=== PATIENT | male | born 1945 | race Caucasian/White ===

== ENCOUNTER 2022-12-08 11:13 | Emergency (ER) | payer OTHER, MEDICARE, SELFPAY ==
[2022-12-08 11:14] VITALS: BP 116/55; PULSE 56; RESP 14; TEMP 36.2; O2SAT 98; BMI 22.2
--- NOTE | 2022-12-08 12:04 | EDS_ITS ---
HPI History of Present Illness HPI Narrative: Patient presents with right hip and pelvic pain that began after a fall 2 days ago. Patient states he was working on a car left and fell approximately 3 feet and landed on his right hip and pelvis area. Patient states his pain is mainly over his right hip and pelvis. Patient states his pain is worse with any weightbearing. Patient denies any paresthesias or weakness. Patient denies any head injury or loss of consciousness. Patient denies any other injuries. Chief Complaint: Fall Informant: patient Occured/Mechanism Mechanism/Context: Yes fall Onset/Context/Timing Onset: Days (2 days ago) Context: Sudden Onset Timing: Continuous Quality of Pain: Aching Location: Right hip and pelvis Worsened by: Weightbearing Relieved by: Rest Associated Symptoms Associated Symptoms: Negative for Parasthesia, Weakness or Loss of Funtion PFSH PFSH Medical History no medical history no medical history Home Medications hydrocodone-acetaminophen 5-325mg 5mg-325mg 1 tab PO Q6H PRN PRN Pain 3 days #10 TABLETS 12/08/22 [Rx Last Taken Unknown] Allergy/AdvReac Type Severity Reaction Status Date / Time No Known Allergies Allergy Verified 12/08/22 11:17 Surgical History no surgical history no surgical history Social History Smoking Status: Former smoker ROS ROS ED Constitutional Constitutional ED: Denies chills or fever(s) Eyes Eyes: Denies blurry vision or change in vision ENT ENT ED: Reports rhinorrhea; Denies sore throat Cardiovascular Cardiovascular: Denies chest pain or palpitations Respiratory/Chest Respiratory/Chest: Reports cough; Denies dyspnea Gastrointestinal Gastrointestinal: Denies nausea or vomiting Genitourinary Genitourinary ED: Reports dysuria; Denies hematuria Musculoskeletal Musculoskeletal: Denies back pain or neck pain Integumentary Denies abscess or rash Neurologic Neurologic: Denies headache(s) or weakness Allergic/Immunologic Allergic/Immunologic ED: Denies mouth swelling or urticaria EXAM Physical Exam Const Vital Signs: 12/08/22 11:14 12/08/22 12:45 Temperature 97.2 F L Temperature Source Temporal Pulse Rate 56 L Respiratory Rate 14 Respiratory Effort Normal Non-Labored Respiratory Depth Normal Respiratory Pattern Normal Blood Pressure 116/55 L Blood Pressure Mean 75 Pulse Ox 98 Oxygen Delivery Method Room Air Room Air Positive well nourished and well developed General Appearance ED: well developed and NAD HEENT Reports moist mucous membranes Neck full ROM and supple Extremity Extremity Narrative: There is tenderness palpation of the anterior aspect of the right hip and over the pubic symphysis area. There is no bony crepitance or step-off. No obvious deformity noted. There is no pain with internal and external rotation of the right lower extremity. Pedal pulses are equal bilaterally. Sensation is intact to light touch bilaterally in the lower extremities. Range of motion of the right hip was slightly limited in flexion secondary to pain. General Extremety ED: Yes weight-bearing difficulty General Extremity: weight-bearing difficulty Neuro oriented x3, CN's II-XII intact bilaterally, moves all extremities and no sensory deficits noted Sensorium / Orientation: alert Motor Exam: strength 5/5 throughout Psych mental status grossly normal Skin no wounds MDM MDM MDM Narrative Medical decision making narrative: Differential diagnosis includes hip fracture, pelvic fracture, contusion, and urinary tract infection. X-rays of the pelvis and right hip will be obtained to assess for fracture. Urinalysis will be obtained to assess for urinary tract infection and hematuria. Lab Data Labs: Laboratory Results - last 24 hr 12/08/22 13:25 Urine Color Yellow Urine Clarity Clear Urine pH 5.0 Ur Specific [place] 1.025 Urine Protein 30 H Urine Glucose (UA) Normal Urine Ketones 5 H Urine Occult Blood 250 H Urine Nitrite Negative Urine Bilirubin Negative Urine Urobilinogen Normal Ur Leukocyte Esterase 25 H Urine RBC 50-100 SEEN Urine WBC 0-5 SEEN Ur Squamous Epith Cells 0 SEEN Urine Bacteria 0 SEEN Urine Mucus 0 SEEN Radiography Diagnostic Testing: Clinical Impression(s) from Imaging Studies Hip/Pelvis X-Ray 12/08/22 12:05 IMPRESSION: Mild degree of degenerative changes Electronically Signed: Eugene Cade MD at 12:37 EDT , Abdomen/Pelvis CT 12/08/22 14:16 IMPRESSION: Nondisplaced fracture involving the anterior superior medial aspect of the right acetabulum extending into the proximal portion of the right superior pubic ramus. Mild prostatic enlargement with indentation at the bladder base. Mild degree of diffuse bladder wall thickening. Electronically Signed: Eugene Cade MD at 14:59 EDT , X-rays of the right hip were obtained. There are 4 views. On my independent interpretation, there is no acute fracture or dislocation. There is no soft tissue swelling. Radiologist also interpreted the x-rays and agrees. Because of the hematuria, CT scan of the abdomen pelvis was obtained. There is no free fluid or free air noted. There is a nondisplaced fracture involving the superior medial aspect of the right acetabulum and extending into the proximal portion of the right superior pubic ramus. This was interpreted by the radiologist and was also independently reviewed by myself. Treatment and Re-Evaluation Narrative: Patient was given a dose of [place] here. Patient is feeling better on reevaluation. Patient was advised of his findings. Patient was given a pres cription for [place]. Patient was ambulated with a walker and was able to ambulate without difficulty. Patient states he has a walker at home and a wheelchair at home. Patient states he has been getting around in his wheelchair for the last couple days and has been able to stand to urinate. Patient wants to go home. Patient was given referral for orthopedic follow-up. Patient was also instructed to follow-up with his primary care physician in 5 to 7 days. Patient and family understand and are agreeable with the plan. All questions were answered. Discharge Plan Triage Chief Complaint: Fall ED Provider: Raimundo Reyes Dx/Rx/DC Orders Clinical Impression: Acetabulum fracture, right, Fall Instructions: ED Pelvic Fracture Prescriptions: New hydrocodone-acetaminophen [hydrocodone-acetaminophen] 5-325 mg tablet 1 tab PO Q6H PRN PRN (Reason: Pain) 3 Days Qty: 10 0RF Stand Alone Forms: Work Status Form Primary Care Provider: Janes Kaur Referrals: Janes Kaur MD [Primary Care Provider] - 5-7 Days Timoteo Cordova DO [Med Staff - Active Staff] - 5-7 Days [facility] [Non-Staff] - 5-7 Days Disposition Disposition: Home, Self Care
--- NOTE | 2022-12-08 12:05 | RAD_ITS ---
STUDY: X-RAY - PELVIS AND RIGHT HIP REASON FOR EXAM: Male, 77 years old. Injury/Pain TECHNIQUE: 4 views of the pelvis and hip. COMPARISON: None. FINDINGS: There is a non-specific bowel gas pattern. Normal visualized soft tissue structures. Normal bilateral iliac wings, sacroiliac joints and visualized sacrum. Normal bilateral superior and inferior pubic rami. Normal pubic symphysis. Normal bilateral ischial tuberosities. Normal visualized femoral head. Normal acetabulum. There is mild articular joint space narrowing of the hip. RAD/HIP, UNI W/ Pelvis 2-3 Views IMPRESSION: Mild degree of degenerative changes Electronically Signed: Eugene Cade MD at 12:37 EDT ,
[2022-12-08] MEDS: HYDROcodone Bitartrate/Apap 5/325 Tablet PO (12:17)
[2022-12-08 13:31] LABS: Bacteria 0 SEEN /hpf (None Seen); Mucous, Urine 0 SEEN /hpf (<or=2+); Squamous Epithelial Cells - UA 0 SEEN /hpf (0-5)
[2022-12-08 13:33] LABS: Color, Urine Yellow (Yellow); Glucose, Dipstick Normal (Normal); Ketone-Dipstick 5 mg/dl (Negative); Leukocyte Esterase-Dipstick 25 /ul (Negative); Nitrite-Dipstick Negative (Negative); Occult Blood-Urine 250 /ul (Negative); Protein-Dipstick 30 mg/dl (Negative); Specific Gravity, Urine 1.025 (1.002-1.030); Urine Bilirubin Dipstick Negative (Negative); Urine Clarity Clear (Clear); Urine Urobilinogen Normal (Normal)
[2022-12-08 13:44] LABS: Red Blood Cells-Urine 50-100 SEEN /hpf (0-5)
[2022-12-08 13:45] LABS: White Blood Cells 0-5 SEEN /hpf (0-5)
--- NOTE | 2022-12-08 14:16 | CT_ITS ---
STUDY: CT ABDOMEN AND PELVIS WITHOUT CONTRAST REASON FOR EXAM: Male, 77 years old. Right-sided hip pain and pelvic pain following a recent fall. RADIATION DOSAGE (If Supplied By Facility): CTDIvol = ( 5.16 ) mGy, DLP = ( 220.07 ) mGycm TECHNIQUE: Transaxial images were obtained from the dome of the diaphragm to the symphysis pubis without oral contrast, and without intravenous contrast. Sagittal and coronal images were reconstructed. Individualized dose optimization techniques were used for this CT. COMPARISON: None. FINDINGS: Mild degree of increased markings at the right lung base suggestive of underlying atelectasis and/or scarring. The visualized portions of the heart are within normal limits. Normal liver. Normal gallbladder and extrahepatic biliary system. There is a benign calcified granuloma of the spleen. Normal pancreas. Normal bilateral adrenal glands. Normal right kidney. Normal left kidney. Normal visualized stomach. Normal small intestine. There are multiple colonic diverticula consistent with diverticulosis. The appendix is visualized and appears normal. There is diffuse atherosclerotic calcification of the abdominal aorta, without a demonstrated aneurysm. Normal inferior vena cava. Normal retroperitoneum. There is a mild degree of diffuse urinary bladder wall thickening. There is enlargement of the prostate gland. It measures 4 cm x 3.8 cm. It causes indentation at the bladder base. There is a small umbilical hernia containing fat. There is a nondisplaced fracture involving the anterior superior medial aspect of the acetabulum extending into the proximal portion of the right superior pubic ramus. Disc space narrowing and disc degeneration at the L5-S1 level. CT/Abdomen/Pelvis without Cont IMPRESSION: Nondisplaced fracture involving the anterior superior medial aspect of the right acetabulum extending into the proximal portion of the right superior pubic ramus. Mild prostatic enlargement with indentation at the bladder base. Mild degree of diffuse bladder wall thickening. Electronically Signed: Eugene Cade MD at 14:59 EDT ,
[2022-12-08 15:13] VITALS: RESP 16
== END 2022-12-08 15:32 | disposition home or self-care (01) ==
PROVIDERS: Emergency Provider Emergency Medicine; PCP Family Medicine; Visit Provider Emergency Medicine
DX: S32.474A Nondisplaced fracture of medial wall of right acetabulum, initial encounter for closed fracture (principal); S32.511A Fracture of superior rim of right pubis, initial encounter for closed fracture; Z87.891 Personal history of nicotine dependence; W17.89XA Other fall from one level to another, initial encounter
CPT/HCPCS: 73502; 74176; 81001; 99283